=== PATIENT | female | born 1995 | race Caucasian/White ===

== ENCOUNTER 2017-10-28 18:10 | Emergency (ER) | payer BC ==
[~2017-10-28] VITALS: Ht 172.7 cm; Wt 85.9 kg
[2017-10-28 18:23] VITALS: TEMP 37; Ht 172.7 cm; Wt 85.9 kg
[2017-10-28] MEDS ORDERED: IBUPROFEN 600 MG TAB PO STA (18:33)
[2017-10-28] MEDS ORDERED: ACETAMINOPHEN 500 MG TAB PO STA (18:33)
--- NOTE | 2017-10-28 18:37 | EMERGENCY ROOM VISIT NOTE ---
ED Visit Note First contact with patient: 18:27 CHIEF COMPLAINT: Foot pain HISTORY OF PRESENT ILLNESS: This 22-year-old female patient presents to the emergency department by private vehicle complaining of swelling and pain in the left foot at rest and worse with weight bearing. The patient denies any known injury to the foot. She states that the pain started yesterday afternoon while she was working out on the elliptical, she states pain is gotten progressively worse and is worse with walking. The patient rates the pain as throbbing and 7/ 10. The patient has taken ibuprofen 800 mg without relief of the pain, but has not taken any medications today. The patient is able to walk. No numbness or weakness. No ankle pain. There are no lacerations of the foot. The patient is able to move all of their toes and their ankle without pain. No previous fracture to this foot. REVIEW OF SYSTEMS: GENERAL: A 6 system review of systems was completed with positives and pertinent negatives in the HPI. ALLERGIES: No known allergies. MEDICATIONS: No current medications. PMH: No significant past medical or surgical history. SOCIAL HISTORY: Lives at home. She is a [employer] student. She denies tobacco use. PHYSICAL EXAM: Vital Signs: Reviewed Nurse's notes, vital signs stable. GENERAL : Pleasant and cooperative, in no acute distress, well-developed, well- nourished. MUSCULOSKELETAL: There is no visual deformity of the left foot. There is no erythema or ecchymosis. There is no warmth. There is no tenderness to palpation of the entire foot and ankle. There is no swelling appreciated to the left foot. There is no tenderness over the lateral or medial malleolus. No tenderness of the tib/fib. The range of motion of the left foot and ankle normal. There is no tenderness over the plantar fascia. The skin is intact and there are no lacerations or puncture wounds. Dorsalis pedis and posterior tibialis pulses 2+. Capillary refill less than 2 seconds. IMAGING: L FOOT MIN 3 VIEWS ROUTINE CLINICAL HISTORY: 22 years-old Female presenting with lateral foot pain, eval fx. TECHNIQUE: Frontal, oblique, and lateral views of the left foot were obtained. COMPARISON: None. FINDINGS: No acute fracture or malalignment. No advanced degenerative change. No radiographic soft tissue abnormality. IMPRESSION: No acute osseous injury. EMERGENCY DEPARTMENT COURSE: I examined the patient. Differential diagnosis includes contusion, sprain/strain, fracture, among others. Patient was given p.o. Motrin, p.o. Tylenol, and an ice pack for pain. An X-ray of the left foot was reviewed by myself and read by the radiologist and reveals no acute fracture. The patient was placed in post op shoe and instructed on the use of crutches. She was also instructed regarding follow-up and return precautions, she verbalized understanding. The patient was discharged home in good condition. Vital Signs Date Time Temp Pulse Resp B/P (MAP) Pulse Ox O2 Delivery O2 Flow Rate FiO2 10/28/17 20:19 67 20 119/65 97 Room Air 10/28/17 18:23 37.0 82 20 108/69 100 Room Air Medications Administered Medications (Trade) Dose Ordered Sig/Keshawn Route Start Time Stop Time Status Last Admin Dose Admin Acetaminophen (Tylenol Tab) 1,000 mg NOW STAT PO 10/28/17 18:33 10/28/17 18:34 DC 10/28/17 18:54 1,000 MG Ibuprofen (Motrin Tab) 600 mg NOW STAT PO 10/28/17 18:33 10/28/17 18:34 DC 10/28/17 18:54 600 MG Departure Information Impression Primary Impression: Foot pain Dispostion Home / Self-Care Condition GOOD Referrals No Doctor, Assigned (PCP) Mainor Jaimes D.O. Patient Instructions ED Contusion Foot, ED Sprain Foot, [facility] Additional Instructions You have been evaluated and treated in the emergency department today for your left foot pain. X-ray of your foot today does not show any fractures or other bony problems to explain your pain. Ice and elevation for 24-48 hrs to help reduce pain and swelling in the foot. Ibuprofen 600 mg every 6 hours and Tylenol 650 mg every 6 hours as needed for pain. For best results, alternate ibuprofen and Tylenol every 3-4 hours. Avoid weight bearing and use crutches and post-op shoe until the pain subsides and you can walk without a limp. Follow up with family doctor or orthopedic surgeon if symptoms persist in 5-7 days. Problem Qualifiers Primary Impression: Foot pain Laterality: left Qualified Codes: M79.672 - Pain in left foot
--- NOTE | 2017-10-28 19:35 | DIAGNOSTIC IMAGING REPORT ---
L FOOT MIN 3 VIEWS ROUTINE CLINICAL HISTORY: 22 years-old Female presenting with lateral foot pain, eval fx. TECHNIQUE: Frontal, oblique, and lateral views of the left foot were obtained. COMPARISON: None. FINDINGS: No acute fracture or malalignment. No advanced degenerative change. No radiographic soft tissue abnormality. IMPRESSION: No acute osseous injury. Electronically signed by: Abdoul Padgett M.D. 10/28/2017 7:33 PM Dictated Date/Time: 10/28/2017 7:33 PM
[2017-10-28 20:19] VITALS: BP 119/65; PULSE 67; O2SAT 97
== END 2017-10-28 20:22 | disposition home or self-care (01) ==
LOC: C.EDB 18:12 → C.EDD 20:22
DX: M79.672 Pain in left foot (principal)